=== PATIENT | female | born 1975 | race Caucasian/White ===

== ENCOUNTER 2017-07-18 15:56 | Outpatient (CLI) | payer OTHER | END 2017-07-18 15:57 | disposition home or self-care (01) | LOC: BICMAMMO 15:56 | PROVIDERS: ATTEND Nurse Practitioner Family | DX: Z12.31 Encounter for screening mammogram for malignant neoplasm of breast (principal) | CPT/HCPCS: 77063; 77067 ==

== ENCOUNTER 2019-03-04 10:55 | Outpatient (CLI) | payer OTHER ==
--- NOTE | 2019-03-04 11:41 | MMO ---
Bilateral MAMMO Bilat Screen [id number]. CLINICAL HISTORY: Patient is 44 years old and is seen for screening. The patient has no family history of breast cancer. The patient has no personal history of cancer. VIEWS: The views performed were: bilateral craniocaudal with tomosynthesis; bilateral mediolateral oblique with tomosynthesis; and right exaggerated craniocaudal with tomosynthesis. FILMS COMPARED: The present examination has been compared to a prior imaging study performed at [facility] on 07/18/2017. This study has been interpreted with the assistance of computer-aided detection. MAMMOGRAM FINDINGS: There are scattered fibroglandular densities. There are no suspicious masses, suspicious calcifications, or new areas of architectural distortion. IMPRESSION: THERE IS NO MAMMOGRAPHIC EVIDENCE OF MALIGNANCY. A ROUTINE FOLLOW-UP MAMMOGRAM IN 1 YEAR IS RECOMMENDED. THE RESULTS OF THIS EXAM WERE SENT TO THE PATIENT. ACR BI-RADS Category 1 - Negative MAMMOGRAPHY NOTE: 1. A negative mammogram report should not delay a biopsy if a dominant of clinically suspicious mass is present. 2. Approximately 10% to 15% of breast cancers are not detected by mammography. 3. Adenosis and dense breasts may obscure an underlying neoplasm. Reported by: ROSALIE FRANKS MD Electonically Signed: [id number]
== END 2019-03-04 10:56 | disposition home or self-care (01) ==
LOC: BICMAMMO 10:55
PROVIDERS: ATTEND Nurse Practitioner Family
DX: Z12.31 Encounter for screening mammogram for malignant neoplasm of breast (principal)
CPT/HCPCS: 77063; 77067

== ENCOUNTER 2025-02-10 12:14 | Outpatient (CLI) | payer BC ==
[2025-02-10 13:11] LABS: #Basophils 0.04 10x3/uL (0.0-0.2); #Eosinophils 0.11 10x3/uL (0.0-0.7); #Monocytes 0.77 10x3/uL (0.11-0.59); #Neutrophils 5.93 10x3/uL (1.40-6.50); %Basophils 0.5 % (0.0-1.0); %Eosinophils 1.3 % (0.0-10.0); %Lymphocytes 20.7 % (21.0-51.0); %Monocytes 8.9 % (0.0-10.0); %Neutrophils 68.3 % (42.0-75.0); Hematocrit 41.3 % (36.0-47.0); Hemoglobin 13.0 g/dL (12.0-16.0); Mean Corpuscular Hemoglobin 27.3 pg (27.0-31.0); Mean Corpuscular Volume 86.8 fL (78.0-98.0); Platelet Count 308 10x3/uL (130-400); Red Blood Cell (RBC) Count 4.76 mill/uL (4.20-5.40); White Blood Cell (WBC) Count 8.68 10x3/uL (4.8-10.8)
[2025-02-10 13:25] LABS: BHCG - Serum Negative (NEGATIVE); Pregs Control Background? CLEAR/WHITE (CLR/WHITE); Pregs Control Bar Appear? YES (CONTROL BAR)
[2025-02-10 13:31] LABS: Anion Gap 14 mmol/L (10-20); BUN (Urea Nitrogen) 14 mg/dL (7.0-18.7); Calc. Creatinine Clearance 0 mL/min (70-130); Calcium 9.2 mg/dL (7.8-10.44); Carbon Dioxide 23 mmol/L (22-29); Chloride 106 mmol/L (98-107); Glucose 95 mg/dL (70-105); Potassium 3.9 mmol/L (3.5-5.1); Sodium 139 mmol/L (136-145)
[2025-02-10 13:35] LABS: INR-International Normal Ratio 1.0; Prothrombin Time 13.2 sec (12.0-14.7)
[2025-02-10 13:36] LABS: PTT 31.5 sec (22.9-36.1)
[2025-02-10 13:46] LABS: Bacteria/HPF None Seen HPF (None Seen); Glucose, Urine (Dipstick) Normal (Negative); Leukocyte 250 Leu/uL (Negative); Protein, Urine (Dipstick) 20 mg/dL (Neg-Trace); Specific Gravity, Urine 1.018 (1.002-1.036); WBC/HPF 21-50 HPF (0-3)
== END 2025-02-10 12:15 | disposition home or self-care (01) ==
LOC: LABBT 12:14
PROVIDERS: ATTEND Urology
DX: Z01.818 Encounter for other preprocedural examination (principal); N20.0 Calculus of kidney; G47.33 Obstructive sleep apnea (adult) (pediatric); E66.01 Morbid (severe) obesity due to excess calories
CPT/HCPCS: 80048; 81001; 84703; 85025; 85610; 85730; 87086; 93005; 93010

== ENCOUNTER 2025-02-24 05:51 | Day surgery (SDC) | payer BC ==
[2025-02-10 12:30] VITALS: BMI 36.2
[2025-02-24] MEDS ORDERED: LevoFLOXacin D5W 500 mg (100 mL) BAG ONE (06:42)
[2025-02-24] MEDS ORDERED: PROPOFOL 20 ML ONE (07:23)
[2025-02-24] MEDS ORDERED: Lidocaine 1% PF 5 ML VIAL ONE (07:27)
[2025-02-24] MEDS ORDERED: Rocuronium Bromide 10 MG/ML (10ML VIAL) ONE (07:27)
[2025-02-24] MEDS ORDERED: Glycopyrrolate 0.2 MG/ML 5 ML SYRINGE ONE (07:28)
[2025-02-24] MEDS ORDERED: Ondansetron PF 4 MG/2 ML Vial ONE ×3 (07:56→13:29)
[2025-02-24] MEDS ORDERED: SUGAMMADEX SODIUM 200 MG/2 ML VIAL ONE (09:34)
[2025-02-24] MEDS ORDERED: Oxybutynin 5 MG TAB ONE (10:43)
[2025-02-24] MEDS ORDERED: HYDROcodone/Acetaminophen 5/325 mg Tablet ONE (14:06)
== END 2025-02-24 12:45 | disposition home or self-care (01) ==
LOC: SDC 05:51
PROVIDERS: ATTEND Urology
PROC: 0T778DZ Dilation of Left Ureter with Intraluminal Device, Via Natural or Artificial Opening Endoscopic (ICD-10-PCS; principal; 2025-02-24)
PROC: 0TC18ZZ Extirpation of Matter from Left Kidney, Via Natural or Artificial Opening Endoscopic (ICD-10-PCS; principal; 2025-02-24)
DX: N20.0 Calculus of kidney (principal); G47.33 Obstructive sleep apnea (adult) (pediatric); Z88.0 Allergy status to penicillin; Z88.1 Allergy status to other antibiotic agents
CPT/HCPCS: 82365; 88300; C1747; C1758; C1769; C2617; J1100; J1956; J2250; J2405; J2704; J3010; Q0162